=== PATIENT | female | born 1995 | race American Indian/Alaskan Native ===

== ENCOUNTER 2017-07-12 13:39 | Emergency (ER) | payer SELFPAY ==
[2017-07-12 13:48] VITALS: BP 132/79
[2017-07-12] MEDS ORDERED: TYLENOL #3 PO ONE (14:03)
[2017-07-12] MEDS ORDERED: BOOSTRIX IM ONE (14:06)
--- NOTE | 2017-07-12 14:12 | Emergency Department Report ---
ED ENT HPI - General Chief complaint: Earache Stated complaint: RIGHT EAR PAIN Time Seen by Provider: 07/12/17 13:52 Source: patient Mode of arrival: Ambulatory Limitations: No Limitations - History of Present Illness Initial comments: 22-year-old female past medical history. Tympanic membrane presents with complaint of pain in right ear for 2 days. Patient states that she was washing her hair and got water in her right ear and has been having pain in right ear for the last 2 days. Patient has had intermittent pain and difficulty hearing out of right ear for over one year. Denies any fevers or chills or purulent drainage from right ear. States that she sustained an injury over a year ago and was informed she had it tympanic membrane rupture but never followed up with ENT. MD complaint: ear pain Onset/Timin Location: R ear Severity: moderate Severity scale (0 -10): 5 Quality: aching Consistency: intermittent Improves with: none Worsens with: none - Related Data Previous Rx's Medication Instructions Recorded Last Taken Type Acetaminophen/Codeine [Tylenol 1 tab PO Q6H PRN #10 tab 07/12/17 Unknown Rx /Codeine # 3 tab] Amoxicillin/Potassium Clav 1 each PO BID #20 tablet 07/12/17 Unknown Rx [Augmentin 875-125 Tablet] Ibuprofen [Motrin] 800 mg PO Q8HR PRN #25 tablet 07/12/17 Unknown Rx Allergies Allergy/AdvReac Type Severity Reaction Status Date / Time No Known Allergies Allergy Unverified 07/12/17 13:44 ED Dental HPI - General Chief complaint: Earache Stated complaint: RIGHT EAR PAIN Time Seen by Provider: 07/12/17 13:52 Source: patient Mode of arrival: Ambulatory Limitations: No Limitations - Related Data Previous Rx's Medication Instructions Recorded Last Taken Type Acetaminophen/Codeine [Tylenol 1 tab PO Q6H PRN #10 tab 07/12/17 Unknown Rx /Codeine # 3 tab] Amoxicillin/Potassium Clav 1 each PO BID #20 tablet 07/12/17 Unknown Rx [Augmentin 875-125 Tablet] Ibuprofen [Motrin] 800 mg PO Q8HR PRN #25 tablet 07/12/17 Unknown Rx Allergies Allergy/AdvReac Type Severity Reaction Status Date / Time No Known Allergies Allergy Unverified 07/12/17 13:44 ED Review of Systems ROS: Stated complaint: RIGHT EAR PAIN Other details as noted in HPI Constitutional: denies: chills, fever Eyes: denies: eye pain, eye discharge, vision change ENT: ear pain. denies: throat pain Respiratory: denies: cough, shortness of breath, wheezing Cardiovascular: denies: chest pain, palpitations Endocrine: no symptoms reported Gastrointestinal: denies: abdominal pain, nausea, diarrhea Genitourinary: denies: urgency, dysuria, discharge Musculoskeletal: denies: back pain, joint swelling, arthralgia Skin: denies: rash, lesions Neurological: denies: headache, weakness, paresthesias Psychiatric: denies: anxiety, depression Hematological/Lymphatic: denies: easy bleeding, easy bruising ED Past Medical Hx - Past Medical History Previous Medical History?: No - Surgical History Past Surgical History?: Yes Additional Surgical History: D&C - Social History Smoking Status: Current Some Day Smoker Substance Use Type: Alcohol, Marijuana - Medications Home Medications: Home Medications Medication Instructions Recorded Confirmed Last Taken Type Acetaminophen/Codeine [Tylenol 1 tab PO Q6H PRN #10 tab 07/12/17 Unknown Rx /Codeine # 3 tab] Amoxicillin/Potassium Clav 1 each PO BID #20 tablet 07/12/17 Unknown Rx [Augmentin 875-125 Tablet] Ibuprofen [Motrin] 800 mg PO Q8HR PRN #25 tablet 07/12/17 Unknown Rx ED Physical Exam - General Limitations: No Limitations General appearance: alert, in no apparent distress - Head Head exam: Present: atraumatic, normocephalic - Eye Eye exam: Present: normal appearance, PERRL, EOMI - ENT ENT exam: Present: mucous membranes moist - Expanded ENT Exam Expanded TM/Canal exam: Erythema: Right TM (surrounding erythema along edges of tympanic membrane. No clinical signs of mastoiditis external), Perforation: Right TM ( perforation and middle of the eardrum right ear) - Neck Neck exam: Present: normal inspection - Respiratory Respiratory exam: Present: normal lung sounds bilaterally. Absent: respiratory distress - Cardiovascular Cardiovascular Exam: Present: regular rate, normal rhythm. Absent: systolic murmur, diastolic murmur, rubs, gallop - GI/Abdominal GI/Abdominal exam: Present: soft, normal bowel sounds - Extremities Exam Extremities exam: Present: normal inspection - Back Exam Back exam: Present: normal inspection - Neurological Exam Neurological exam: Present: alert, oriented X3 - Psychiatric Psychiatric exam: Present: normal affect, normal mood - Skin Skin exam: Present: warm, dry, intact, normal color. Absent: rash ED Course Vital Signs 07/12/17 13:44 Temperature 99 F Pulse Rate 77 Respiratory 18 Rate Blood Pressure 132/79 O2 Sat by Pulse 100 Oximetry ED Medical Decision Making - Medical Decision Making A/P: Acute otitis media, history of ruptured tympanic membrane right ear 1-patient's overall hearing is intact 2-patient's tetanus vaccine updated today as she states she does not know what her tetanus vaccine status is 3-Motrin when necessary, Tylenol No. 3 when necessary, ten-day course of Augmentin 4-I emphasized the importance of follow-up with ENT to the patient to mitigate any long-term hearing loss. Patient stated she understood and would follow up with ENT. Advised her to return to the ED if she develops fevers chills or purulent drainage from right ear. Critical care attestation.: If time is entered above; I have spent that time in minutes in the direct care of this critically ill patient, excluding procedure time. ED Disposition Clinical Impression: Right otitis media Qualifiers: Otitis media type: suppurative Chronicity: acute Recurrence: not specified as recurrent Spontaneous tympanic membrane rupture: without spontaneous rupture Qualified Code(s): H66.001 - Acute suppurative otitis media without spontaneous rupture of ear drum, right ear Disposition: - TO HOME OR SELFCARE Is pt being admited?: No Does the pt Need Aspirin: No Condition: Stable Instructions: Otitis Media (ED), Ruptured Eardrum (ED) Prescriptions: Acetaminophen/Codeine [Tylenol /Codeine # 3 tab] 1 tab PO Q6H PRN #10 tab PRN Reason: Ear Pain Amoxicillin/Potassium Clav [Augmentin 875-125 Tablet] 1 each PO BID #20 tablet Ibuprofen [Motrin] 800 mg PO Q8HR PRN #25 tablet PRN Reason: Pain Referrals: [facility] [place] [facility] [Provider Group] - 3-5 Days [facility]NT [facility] [Provider Group] - 3-5 Days ANDERSON CALVO MD [Staff Physician] - 3-5 Days Time of Disposition: 14:43
== END 2017-07-12 14:45 | disposition home or self-care (01) ==
LOC: ED 13:39
DX: H66.001 Acute suppurative otitis media without spontaneous rupture of ear drum, right ear (principal); F17.200 Nicotine dependence, unspecified, uncomplicated; F12.10 Cannabis abuse, uncomplicated
CPT/HCPCS: 90471; 90715; 99282

== ENCOUNTER 2019-03-20 11:43 | Emergency (ER) | payer OTHER ==
--- NOTE | 2019-03-20 11:56 | Event Note ---
ED Screening Note Date of service: 03/20/19 Time: 11:51 ED Screening Note: Pt complains of cough, congestion, and SOB x 3 weeks 4 months pregannt This initial assessment/diagnostic orders/clinical plan/treatment(s) is/are subject to change based on patients health status, clinical progression and re- assessment by fellow clinical providers in the ED. Further treatment and workup at subsequent clinical providers discretion. Patient/guardian urged not to elope from the ED as their condition may be serious if not clinically assessed and managed. Initial orders include: CXR
[2019-03-20 12:33] LABS: Basophils # (Auto) 0.1 K/mm3 (0.0-0.1); Basophils % (Auto) 0.6 % (0.0-1.8); Eosinophils # (Auto) 0.2 K/mm3 (0.0-0.4); Eosinophils % (Auto) 2.1 % (0.0-4.3); Hematocrit 35.4 % (30.3-42.9); Hemoglobin 12.4 gm/dl (10.1-14.3); Lymphocytes # (Auto) 1.4 K/mm3 (1.2-5.4); Lymphocytes % (Auto) 14.2 % (13.4-35.0); Mean Corpuscular HGB Conc 35 % (30-34); Mean Corpuscular Volume 86 fl (79-97); Monocytes # (Auto) 0.6 K/mm3 (0.0-0.8); Monocytes % (Auto) 6.4 % (0.0-7.3); Platelet Count 368 K/mm3 (140-440); Red Blood Count 4.11 M/mm3 (3.65-5.03); Red Cell Distribution Width 13.2 % (13.2-15.2)
[2019-03-20 12:46] VITALS: BP 123/64
[2019-03-20 12:46] LABS: Alanine Aminotransferase 35 units/L (7-56); Albumin 3.4 g/dL (3.9-5); BUN/Creatinine Ratio 6; Blood Urea Nitrogen 4 mg/dL (7-17); Calcium 9.2 mg/dL (8.4-10.2); Hemolysis Index 4
[2019-03-20 13:21] LABS: Bilirubin,Urine NEG (Negative); Blood,Urine NEG (Negative); Color,Urine Yellow (Yellow); Mucus,Urine FEW /HPF; Protein,Urine <15 mg/dL mg/dL (Negative); Urobilinogen,Urine < 2.0 mg/dL (<2.0)
--- NOTE | 2019-03-20 13:22 | XRay Report ---
CHEST 1 VIEW INDICATION / CLINICAL INFORMATION: cough, shortness of breath. COMPARISON: None available. FINDINGS: SUPPORT DEVICES: None. HEART / MEDIASTINUM: No significant abnormality. LUNGS / PLEURA: No significant pulmonary or pleural abnormality. No pneumothorax. ADDITIONAL FINDINGS: No significant additional findings. IMPRESSION: 1. No significant change Signer Name: Wally Shore MD Signed: 03/20/2019 1:18 PM Workstation Name: [id number]
--- NOTE | 2019-03-20 13:35 | Emergency Department Report ---
- General Chief Complaint: Upper Respiratory Infection Stated Complaint: SICK/4 MTHS PREG Time Seen by Provider: 03/20/19 11:50 Source: patient Mode of arrival: Ambulatory Limitations: No Limitations - History of Present Illness Initial Comments: CC: "I have a lingering cold." HPI: Ernesto Is a very pleasant 23 year old female who is currently 16 weeks who presents with cold-like symptoms and cough for the past 3 weeks. She has nasal congestion nonproductive cough. She is concerned that the cold has lingered. She denies fever. She denies body aches. She denies abdominal pain. She denies nausea vomiting. Her due date is 08/26/2019. She has been re ceiving regular care. MD Complaint: cough, rhinorrhea, nasal congestion -: Gradual, week(s) (3) Severity: mild Consistency: constant Improves With: nothing Worsens With: nothing Context: other (unknown sick contacts) Associated Symptoms: denies other symptoms - Related Data Previous Rx's Medication Instructions Recorded Last Taken Type Amoxicillin/Potassium Clav 1 each PO BID #20 tablet 07/12/17 Unknown Rx [Augmentin 875-125 Tablet] Ibuprofen [Motrin] 800 mg PO Q8HR PRN #25 tablet 07/12/17 Unknown Rx RX: Acetaminophen/Codeine [Tylenol 1 tab PO Q6H PRN #10 tab 07/12/17 Unknown Rx /Codeine # 3 tab] Allergies Allergy/AdvReac Type Severity Reaction Status Date / Time No Known Allergies Allergy Unverified 07/12/17 13:44 ED Review of Systems ROS: Stated complaint: SICK/4 MTHS PREG Other details as noted in HPI Comment: All other systems reviewed and negative Constitutional: denies: chills, fever Eyes: denies: eye pain, eye discharge, vision change ENT: congestion. denies: ear pain, throat pain Respiratory: denies: cough, shortness of breath, wheezing Cardiovascular: denies: chest pain, palpitations Gastrointestinal: denies: abdominal pain, nausea, diarrhea Skin: denies: rash, lesions Neurological: denies: headache, weakness, paresthesias ED Past Medical Hx - Past Medical History Previous Medical History?: No - Surgical History Past Surgical History?: Yes Additional Surgical History: D&C - Social History Smoking Status: Never Smoker - Medications Home Medications: Home Medications Medication Instructions Recorded Confirmed Last Taken Type Amoxicillin/Potassium Clav 1 each PO BID #20 tablet 07/12/17 Unknown Rx [Augmentin 875-125 Tablet] Ibuprofen [Motrin] 800 mg PO Q8HR PRN #25 tablet 07/12/17 Unknown Rx RX: Acetaminophen/Codeine [Tylenol 1 tab PO Q6H PRN #10 tab 07/12/17 Unknown Rx /Codeine # 3 tab] ED Physical Exam - General Limitations: No Limitations General appearance: alert, in no apparent distress, other (well-appearing smiling pleasant heart rate 97 bpm on youth nutritional monitor) - Head Head exam: Present: atraumatic, normocephalic - Eye Eye exam: Present: normal appearance - ENT ENT exam: Present: mucous membranes moist - Neck Neck exam: Present: normal inspection, full ROM - Respiratory Respiratory exam: Present: normal lung sounds bilaterally. Absent: respiratory distress, wheezes, rales, rhonchi - Cardiovascular Cardiovascular Exam: Present: regular rate, normal rhythm, normal heart sounds. Absent: systolic murmur, diastolic murmur, rubs, gallop - GI/Abdominal GI/Abdominal exam: Present: soft, normal bowel sounds. Absent: distended, tenderness, guarding, rebound - Extremities Exam Extremities exam: Present: normal inspection - Neurological Exam Neurological exam: Present: alert, oriented X3 - Psychiatric Psychiatric exam: Present: normal affect, normal mood - Skin Skin exam: Present: warm, dry, intact, normal color. Absent: rash ED Course Vital Signs 03/20/19 03/20/19 11:46 12:45 Temperature 98.6 F Pulse Rate 120 H 104 H Respiratory 18 16 Rate Blood Pressure 137/80 Blood Pressure 123/64 [Left] O2 Sat by Pulse 97 99 Oximetry ED Medical Decision Making - Lab Data Result diagrams: 03/20/19 12:03 03/20/19 12:03 Laboratory Results - last 24 hr 03/20/19 03/20/19 03/20/19 12:03 12:03 12:45 WBC 10.1 RBC 4.11 Hgb 12.4 Hct 35.4 MCV 86 MCH 30 MCHC 35 H RDW 13.2 Plt Count 368 Lymph % (Auto) 14.2 [place] % (Auto) 6.4 Eos % (Auto) 2.1 Baso % (Auto) 0.6 Lymph # 1.4 [place] # 0.6 Eos # 0.2 Baso # 0.1 Seg Neutrophils % 76.7 H Seg Neutrophils # 7.8 H Sodium 137 Potassium 3.7 Chloride 103.5 Carbon Dioxide 21 L Anion Gap 16 BUN 4 L Creatinine 0.7 Estimated GFR > 60 BUN/Creatinine Ratio 6 Glucose 94 Calcium 9.2 Total Bilirubin 0.20 AST 26 ALT 35 Alkaline Phosphatase 61 Total Protein 7.1 Albumin 3.4 L Albumin/Globulin Ratio 0.9 Urine Color Yellow Urine Turbidity Slightly-cloudy Urine pH 6.0 Ur Specific [place] 1.016 Urine Protein <15 mg/dl Urine Glucose (UA) Neg Urine Ketones Neg Urine Blood Neg Urine Nitrite Neg Urine Bilirubin Neg Urine Urobilinogen < 2.0 Ur Leukocyte Esterase Neg Urine WBC (Auto) 2.0 Urine RBC (Auto) 6.0 U Epithel Cells (Auto) 14.0 H Urine Mucus Few - Radiology Data Radiology results: report reviewed Chest radiographs PA and lateral no acute process - Medical Decision Making Reality presents with upper respiratory infection. She is currently 16 weeks . Denies fever or flulike symptoms otherwise. She appears well. She was given extensive instructions regarding safe [id number] treatments which includes diphenhydramine and Tylenol. CBC chemistry urinalysis all within normal limits. Chest radiograph without acute findings. She'll follow-up with her personal book mender this week. Discharged home in stable condition. Repeat heart rate 97 bpm on my examination. Critical care attestation.: If time is entered above; I have spent that time in minutes in the direct care of this critically ill patient, excluding procedure time. ED Disposition Clinical Impression: Upper respiratory infection, Second trimester Disposition: DC-01 TO HOME OR SELFCARE Is pt being admited?: No Does the pt Need Aspirin: No Condition: Stable Instructions: Upper Respiratory Infection (ED) Additional Instructions: Benadryl and Tylenol are safe in . Please use Benadryl at night for nasal congestion. Referrals: PRIMARY CARE, [Primary Care Provider] - 3-5 Days
== END 2019-03-20 13:39 | disposition home or self-care (01) ==
LOC: ED 11:43
DX: O99.512 Diseases of the respiratory system complicating pregnancy, second trimester (principal); Z79.899 Other long term (current) drug therapy; Z3A.16 16 weeks gestation of pregnancy
CPT/HCPCS: 36415; 71045; 80053; 81001; 85025

== ENCOUNTER 2019-08-28 16:51 | Outpatient (CLI) | payer OTHER ==
[2019-08-28 17:22] VITALS: BP 122/75
== END 2019-08-28 19:16 | disposition home or self-care (01) ==
LOC: TRG 16:51 → APU 16:58 → TRG 19:16
PROVIDERS: ATTEND Obstetrics & Gynecology
DX: O47.03 False labor before 37 completed weeks of gestation, third trimester (principal); Z3A.36 36 weeks gestation of pregnancy
CPT/HCPCS: 59025

== ENCOUNTER 2019-08-29 05:50 | Inpatient (IN) | payer OTHER ==
[2019-08-29] MEDS ORDERED: TERBUTALINE 1 MG/1 ML INJ SUB-Q PRN (08:18)
[2019-08-29] MEDS ORDERED: LIDOCAINE (2%) 20 MG/1 ML VIAL 20 ML MDV INFILTRATI ONE ×2 (08:18→17:39)
[2019-08-29] MEDS ORDERED: TERBUTALINE 1 MG/1 ML INJ IVP PRN (08:18)
[2019-08-29] MEDS ORDERED: ePHEDrine SULFATE 50 MG/1 ML INJ IV PRN (08:18)
--- NOTE | 2019-08-29 08:24 | History and Physical Report ---
History of Present Illness Date of examination: 08/29/19 Date of admission: 08/29/19 Chief complaint: Contractions, leaking fluid History of present illness: Pt is a 24 yo at 40w0d who presents reporting regular uterine contractions and leaking fluid. She reports positive movement and one episode of spotting yesterday. Exam in triage is negative for SROM. She has received care with [place] [facility] supervisor marble since 10 weeks EGA. Her course has been complicated by Sickle Cell Trait carrier status. She is GBS negative. Past History Past Medical History: asthma Past Surgical History: D&C (due to heavy bleeding) Family/Genetic History: none Social history: no significant social history - Obstetrical History Expected Date of Delivery: 08/29/19 Actual Gestation: 40 Week(s) 0 Day(s) : 1 Para: 0 Medications and Allergies Allergies Allergy/AdvReac Type Severity Reaction Status Date / Time No Known Allergies Allergy Unverified 07/12/17 13:44 Home Medications Medication Instructions Recorded Confirmed Last Taken Type Acetaminophen/Codeine [Tylenol 1 tab PO Q6H PRN #10 tab 07/12/17 Unknown Rx /Codeine # 3 tab] Amoxicillin/Potassium Clav 1 each PO BID #20 tablet 07/12/17 Unknown Rx [Augmentin 875-125 Tablet] Ibuprofen [Motrin] 800 mg PO Q8HR PRN #25 tablet 07/12/17 Unknown Rx Active Meds: Active Medications Ephedrine Sulfate (Ephedrine Sulfate) 10 mg IV Q2M PRN PRN Reason: Hypotension Oxytocin/Sodium Chloride (Pitocin/Ns 20 Unit/1000ml Drip) 20 units in 1,000 mls @ 125 mls/hr IV DIRECT DANNY Oxytocin/Sodium Chloride (Pitocin/Ns 30 Unit/500ml) 30 units in 500 mls @ 1 mls/hr IV TITR DANNY; Protocol Lactated Ringer's (Lactated Ringers) 1,000 mls @ 125 mls/hr IV DIRECT DANNY Lidocaine (Xylocaine 2%) 20 ml INFILTRATI ONCE ONE Stop: 08/29/19 08:19 Mineral Oil (Mineral Oil) 30 ml PO QHS PRN PRN Reason: Constipation Terbutaline Sulfate (Brethine) 0.25 mg SUB-Q ONCE PRN PRN Reason: Hyperstimulation/Hypertonicity Terbutaline Sulfate (Brethine) 0.25 mg IVP ONCE PRN PRN Reason: Hyperstimulation/Hypertonicity Review of Systems All systems: negative Genitourinary: vaginal discharge (with some bloody show), leakage of fluid (thick, mucusy), contractions - Vital Signs Vital signs: Vital Signs Pulse Pulse Ox 108 H 98 08/29/19 06:22 08/29/19 06:22 Temp Pulse Resp BP Pulse Ox 97.8 F 102 H 18 143/88 97 08/29/19 06:25 08/29/19 07:07 08/29/19 06:25 08/29/19 06:25 08/29/19 07:07 - Physical Exam Lungs: Positive: Normal air movement Abdomen: Positive: soft. Negative: distention Vagina: Positive: other (no fluid, Nitrazine negative) Uterus: Positive: enlarged (gravid) - Obstetrical FHR: category 1 Uterine Contraction Monitor Mode: External Cervical Dilatation: 4 (per RN) Cervical Effacement Percentage: 70 station: -2 Uterine Contraction Pattern: Regular Uterine Tone Measurement Phase: Contraction Uterine Contraction Intensity: Strong/Firm Results Result Diagrams: 08/29/19 08:00 All other labs normal. Assessment and Plan A: 24 yo at 40w0d Active labor Membranes intact GBS negative Asthma P: Admit to L&D Pain relief as requested Anticipate
[2019-08-29 08:35] LABS: Hematocrit 29.7 % (30.3-42.9); Mean Corpuscular HGB Conc 34 % (30-34); Mean Corpuscular Volume 84 fl (79-97); Platelet Count 314 K/mm3 (140-440); Red Blood Count 3.52 M/mm3 (3.65-5.03); Red Cell Distribution Width 14.4 % (13.2-15.2)
[2019-08-29] MEDS ORDERED: OXYTOCIN DRIP 30 UNITS/500 ML BAG IV SCH (09:00)
[2019-08-29] MEDS ORDERED: OXYTOCIN 20 UNIT/1000ML DRIP 20 UNITS/1,000 ML BAG IV SCH (09:00)
[2019-08-29] MEDS ORDERED: fentaNYL 100 MCG/2 ML INJ ONE ×2 (09:24→16:26)
[2019-08-29] MEDS ORDERED: fentaNYL 100 MCG/2 ML INJ IV ONE ×2 (09:26→17:35)
[2019-08-29] MEDS: LACTATED RINGERS 1,000 ML IV SCH ×3 (11:17→14:19)
[2019-08-29] MEDS ORDERED: DEXMEDETOMIDINE 200 MCG/2 ML VIAL IV ONE (12:17)
[2019-08-29] MEDS ORDERED: NalbUPHINE 10 MG/1 ML INJ IV PRN (12:45)
[2019-08-29] MEDS ORDERED: ONDANSETRON 4 MG/2 ML INJ IV PRN ×2 (12:45→18:12)
[2019-08-29] MEDS ORDERED: diphenhydrAMINE 50 MG/ML VIAL IV PRN (12:45)
[2019-08-29] MEDS ORDERED: NALOXONE 2 MG/2 ML INJ IV PRN (12:45)
--- NOTE | 2019-08-29 12:47 | Anesthesia Consultation ---
Anesthesia Consult and Med Hx Date of service: 08/29/19 - Airway Anesthetic Teeth Evaluation: Good ROM Head & Neck: Adequate Mental/Hyoid Distance: Adequate Mallampati Class: Class III Intubation Access Assessment: Possibly Difficult - Pulmonary Exam CTA: Yes - Cardiac Exam Cardiac Exam: RRR - Pre-Operative Health Status ASA Pre-Surgery Classification: ASA2 Proposed Anesthetic Plan: Epidural - Pulmonary Hx Smoking: No Hx Asthma: Yes (NEVER HAD AN ATTACK) Hx Sleep Apnea: No - Cardiovascular System Hx Hypertension: No - Central Nervous System Hx Seizures: No Hx Psychiatric Problems: No - Endocrine Hx Renal Disease: No Hx Hypothyroidism: No Hx Hyperthyroidism: No - Hematic Hx Anemia: No Hx Sickle Cell Disease: No - Other Systems Hx Alcohol Use: No
--- NOTE | 2019-08-29 12:48 | Progress Note ---
Labor Epidural - Labor Epidural Start Time: 12:28 Stop Time: 12:36 Performed by:: COLTON LEONE Procedure: Patient is requesting a laboring epidural for laboring pain. Patient IDed, H&P reviewed, all questions and concerns were answered, and consent was signed. Timeout was performed at bedside. Patient in sitting position. Sterile prep and drape was performed. [3] ml of 1% lidocaine skin wheal at L[3]- L [4]. 18- gauge Touhy epidural needle was advanced to loss of resistance with air technique. Negative CSF negative blood. Epidural catheter advanced to [12] centimeters. [-] Aspiration [-] test dose. Sterile dressing applied. Patient tolerated procedure.
[2019-08-29] MEDS ORDERED: fentaNYL-BUPIV 2 MCG/ML-0.125% 200 MCG/100 ML BAG EPIDURAL SCH (13:00)
--- NOTE | 2019-08-29 16:21 | Event Note ---
Date: 08/29/19 Pt uncomfortable with epidural in place, grimacing and moaning through contractions. Feels intermittent rectal pressure. Discussed r/b of AROM, pt elects. SVE 8.5/90/-2 AROM scant clear fluid, FHT category 1 throughout. Positioned in exaggerated right lateral. Will consult anesthesia.
[2019-08-29] MEDS ORDERED: BUPIVACAINE/PF (0.25%) 2.5 MG/ML 10 ML VIAL INFILTRATI ONE (16:26)
--- NOTE | 2019-08-29 18:11 | Procedure Note ---
OB Delivery Note - Delivery Date of Delivery: 08/29/19 Surgeon: BATSHEVA RED (MEGAM) Estimated blood loss: 300cc - Vaginal Delivery presentation: vertex Delivery position: OA Intrapartum events: PROM->1hr before delivery Delivery induction: none Delivery augmentation: rupture of membranes, pitocin Delivery monitor: external FHT, external uterine Route of delivery: Delivery placenta: spontaneous Delivery cord: nuchal cord Episiotomy: none Delivery laceration: other (right sulcus) Delivery repair: vicryl Anesthesia: local, intravenous, epidural Delivery comments: Pt commenced pushing spontaneously and delivered vigorous infant while CNM was en route. Pitocin infusing. Cord clamped and cut. Placenta delivered spontaneously and intact, meconium-stained. Sulcus laceration not hemostatic to applied pressure. IV Fentanyl administered, 2% Lidocaine infiltrated submucosally, repaired with 2-0 Vicryl in running fashion to good hemostasis. Mother and bonding well, plan to breast feed. Apgars 8/9, weight 7lb 10oz. - A at 1 minute: 8 at 5 minutes: 9 Infant Gender: Male
[2019-08-29] MEDS ORDERED: LANOLIN/ZINC/DIMETHICONE (LANSINOH) 7 GM TP PRN (18:12)
[2019-08-29] MEDS ORDERED: diphenhydrAMINE 25 MG CAP PO PRN (18:12)
[2019-08-29] MEDS ORDERED: PROMETHAZINE 25 MG RECT SUPP PR PRN (18:12)
[2019-08-29] MEDS ORDERED: PROMETHAZINE 25 MG TAB PO PRN (18:12)
[2019-08-29] MEDS ORDERED: ACETAMINOPHEN 325 MG TAB PO PRN (18:12)
[2019-08-29] MEDS ORDERED: MAGNESIUM HYDROXIDE (MOM) ORAL LIQD UDC PO PRN (18:12)
[2019-08-29] MEDS ORDERED: WITCH HAZEL/ GLYCERIN PAD TP PRN (18:12)
[2019-08-29] MEDS ORDERED: MINERAL OIL 30 ML ORAL LIQD PO PRN (22:00)
[2019-08-29] MEDS: IBUPROFEN 600 MG TAB PO SCH (23:41)
[2019-08-30] MEDS: IBUPROFEN 600 MG TAB PO SCH ×3 (05:33→17:58)
[2019-08-30 05:57] LABS: Hematocrit 26.7 % (30.3-42.9); Hemoglobin 8.9 gm/dl (10.1-14.3)
--- NOTE | 2019-08-30 09:14 | Progress Note ---
Assessment and Plan A: PPD#1 s/p at term, Asymptomatic anemia P: Routine care. Discharge later today if baby is discharged. Subjective - Subjective Date of service: 08/30/19 Principal diagnosis: s/po at term Interval history: Pt without complaints. Requesting discharge later today if possible Patient reports: appetite normal, voiding normally, pain well controlled, ambulating normally : doing well Objective - Vital Signs Latest vital signs: Vital Signs Temp Pulse Resp BP BP Pulse Ox 08/30/19 08:51 98.4 F 88 20 114/66 100 08/30/19 04:50 98.2 F 93 H 20 107/62 98 08/30/19 01:00 98.2 F 97 H 20 106/52 98 08/29/19 19:53 98.4 F 86 18 119/71 98 08/29/19 19:30 98.3 F 18 99 08/29/19 19:13 80 121/74 08/29/19 17:48 98.2 F 08/29/19 17:43 91 H 120/68 08/29/19 17:42 81 122/65 08/29/19 17:13 88 127/81 08/29/19 16:43 85 116/65 08/29/19 16:18 84 98 08/29/19 16:11 99 H 99 08/29/19 16:06 81 99 08/29/19 16:01 90 99 08/29/19 16:00 99.0 F 22 08/29/19 15:56 100 H 99 08/29/19 15:42 81 141/75 08/29/19 15:13 75 157/91 08/29/19 14:42 84 127/60 08/29/19 14:10 99.2 F 16 08/29/19 13:57 85 127/71 08/29/19 13:42 88 121/69 08/29/19 13:30 98.2 F 18 08/29/19 13:27 87 121/67 08/29/19 13:13 89 136/78 08/29/19 12:57 100 H 128/61 08/29/19 12:54 105 H 138/65 08/29/19 12:53 87 127/62 08/29/19 12:51 88 132/61 08/29/19 12:49 93 H 120/56 08/29/19 12:46 93 H 129/60 08/29/19 12:45 93 H 132/60 08/29/19 12:43 92 H 147/80 08/29/19 12:41 90 126/61 08/29/19 12:38 90 125/60 08/29/19 12:36 88 134/63 08/29/19 12:34 87 128/59 08/29/19 12:33 86 127/57 08/29/19 12:16 82 117/62 08/29/19 11:46 83 120/59 08/29/19 11:16 80 119/65 08/29/19 11:00 98.9 F 18 08/29/19 10:46 79 147/90 08/29/19 10:16 84 161/94 08/29/19 09:47 85 112/66 Intake and Output 08/29/19 08/30/19 08/30/19 22:59 06:59 14:59 Output Total 1300 Balance -1300 Output: Urine 1300 Indwelling Catheter 1300 Other: Total, Output Amount 300 # Voids Indwelling Catheter 1 1 # Bowel Movements 1 Estimated Blood Loss 300 - Exam Breasts: Present: deferred Abdomen: Present: soft Uterus: Present: fundal height at umbilicus Extremities: Present: normal - Labs Labs: Abnormal lab results 08/30/19 Range/Units 05:35 Hgb 8.9 L (10.1-14.3) gm/dl Hct 26.7 L (30.3-42.9) %
--- NOTE | 2019-08-30 11:25 | Post Anesthesia Evaluation ---
- Post Anesthesia Evaluation Patient Participated: Yes Airway Patent: Yes Stable Respiratory Function: Yes Nausea/Vomiting: No Temp > 96.8F: Yes Pain Manageable: Yes Adequeate Hydration: Yes Anesthesia Complications: No Block Receding Appropriately: Yes Patient on Ventilator: No
--- NOTE | 2019-08-30 13:04 | Discharge Summary ---
Providers - Providers Date of Admission: 08/29/19 09:29 Date of discharge: 08/30/19 Attending physician: SARAVANAN STEVENS 08/29/19 18:13 Consult to Life Science Technician [CONS] Routine Reason For Exam: assistance with , SNS Primary care physician: SARAVANAN STEVENS Hospitalization Reason for admission: active labor Delivery: Procedure details: Please see delivery note. Episiotomy: none Laceration: other (Righlt sulcus tear ) Other procedures: none complications: none Discharge diagnosis: IUP at term delivered [place] baby: male Hospital course: Pt was admitted in active labor and went on to have a vaginal delivery which she tolerated well. Her course was uncomplicated and she met discharge criteria on PPD#1. She will follow up in the office in 4 wks for a appt. Condition at discharge: Stable Disposition: DC-01 TO HOME OR SELFCARE - Discharge Diagnoses (1) Term of male Status: Acute (2) Acute on chronic blood loss anemia Status: Acute (3) Obesity Status: Acute Qualifiers: Obesity type: unspecified obesity type Obesity classification: adult class 2 (BMI 35 - 39.9) Body mass index: BMI 36.0-36.9 Plan - Discharge Medications Prescriptions: Ferrous Sulfate [Feosol 325 MG tab] 325 mg PO BID #60 tablet Ibuprofen [Motrin] 600 mg PO Q6H PRN #60 tablet PRN Reason: Pain - Provider Discharge Summary Activity: routine, no sex for 6 weeks, no heavy lifting 4 weeks, no strenuous exercise Diet: routine Instructions: routine Additional instructions: [] Smoking cessation referral if applicable(refer to patient education folder for contact #) [] Refer to [facility] Booklet Call your doctor immediately for: * Fever > 100.5 * Heavy vaginal bleeding ( >1 pad per hour) * Severe persistent headache * Shortness of breath * Reddened, hot, painful area to leg or breast * Drainage or odor from incision. * Keep incision clean and dry at all times and follow doctor's instructions regarding bathing/showering - Follow up plan Follow up: IVELKA ROSA NP [Referring] - 09/27/19 (Please call to schedule appt Please schedule your son's circumcision before he is one month old. )
[2019-08-31] MEDS: IBUPROFEN 600 MG TAB PO SCH ×3 (00:21→17:02)
[2019-08-31 19:12] VITALS: BP 134/83
== END 2019-08-31 19:00 | disposition home or self-care (01) | DRG 775 ==
LOC: TRG 05:50 → APU 05:53 → TRG 09:28 → LD 09:29 → OB 20:39
PROVIDERS: ADMIT Obstetrics & Gynecology; ATTEND Obstetrics & Gynecology
PROC: 10E0XZZ Delivery of Products of Conception, External Approach (ICD-10-PCS; principal; 2019-08-29)
PROC: 3E0R3BZ Introduction of Anesthetic Agent into Spinal Canal, Percutaneous Approach (ICD-10-PCS; 2019-08-29)
PROC: 00HU33Z Insertion of Infusion Device into Spinal Canal, Percutaneous Approach (ICD-10-PCS; 2019-08-29)
PROC: 0UQGXZZ Repair Vagina, External Approach (ICD-10-PCS; 2019-08-29)
DX: O69.81X0 Labor and delivery complicated by cord around neck, without compression, not applicable or unspecified (principal); O42.02 Full-term premature rupture of membranes, onset of labor within 24 hours of rupture; J45.909 Unspecified asthma, uncomplicated; D62 Acute posthemorrhagic anemia; O99.52 Diseases of the respiratory system complicating childbirth; O90.81 Anemia of the puerperium; Z3A.40 40 weeks gestation of pregnancy; Z37.0 Single live birth; O71.4 Obstetric high vaginal laceration alone
CPT/HCPCS: 36415; 59025; 85014; 85018; 85027; 86850; 86900; 86901; 88307; G0378; J2590; J3010; J3490; J7120

== ENCOUNTER 2021-08-07 15:52 | Emergency (ER) | payer OTHER ==
[2021-08-07 18:44] VITALS: BP 171/84
[2021-08-08] MEDS ORDERED: diphenhydrAMINE 25 MG CAP PO ONE (03:36)
[2021-08-08] MEDS ORDERED: predniSONE 20 MG TAB PO ONE (03:36)
[2021-08-08] MEDS ORDERED: ACETAMINOPHEN 500 MG TAB PO ONE (03:36)
[2021-08-08] MEDS ORDERED: METOCLOPRAMIDE 10 MG TAB PO ONE (03:36)
--- NOTE | 2021-08-08 03:44 | Emergency Department Report ---
ED Headache HPI - General Chief Complaint: Headache Stated Complaint: HEADACHE Time Seen by Provider: 08/08/21 03:37 - History of Present Illness Initial Comments: Patient 26-year-old female with history of headaches for the past 10 years intermittently. Patient states frontal headache 5/10 radiating to left and right for the past 3 days. Patient denies photophobia however there is no decrease of vision. There is no fevers no chills no ear or throat pain. Patient remains alert oriented x3 there is no nausea or vomiting. Patient drove self to ED tonight there is been no fever or chills. Patient states symptoms are exacerbated by activity. Symptoms are relieved by rest. Patient states she is between primary care providers and does not have medications for headache. Patient is with no acute distress at this time. Allergies/Adverse Reactions: Allergies No Known Allergies Allergy (Unverified 07/12/17 13:44) Home Medications: Ambulatory Orders Ferrous Sulfate [Feosol 325 MG tab] 325 mg PO BID #60 tablet 08/29/19 Ibuprofen [Motrin] 600 mg PO Q6H PRN #60 tablet 08/29/19 Acetaminophen [Acetaminophen TAB] 1,000 mg PO Q6HR PRN #30 tablet 08/08/21 Metoclopramide [Reglan] 10 mg PO Q6H PRN #30 tablet 08/08/21 diphenhydrAMINE [Benadryl CAP] 25 mg PO Q6HR PRN #30 capsule 08/08/21 ED Review of Systems ROS: Stated complaint: HEADACHE Other details as noted in HPI Constitutional: malaise. denies: chills, fever Eyes: denies: eye pain, eye discharge, vision change ENT: denies: ear pain, throat pain, epistaxis, congestion Respiratory: denies: cough, shortness of breath, wheezing Cardiovascular: denies: chest pain, palpitations Endocrine: no symptoms reported Gastrointestinal: denies: abdominal pain, nausea, vomiting, diarrhea Genitourinary: denies: urgency, dysuria, discharge Musculoskeletal: denies: back pain, joint swelling, arthralgia Skin: denies: rash, lesions Neurological: headache. denies: weakness, numbness, paresthesias, confusion, abnormal gait, vertigo Psychiatric: as per HPI Hematological/Lymphatic: denies: easy bleeding, easy bruising ED Past Medical Hx - Past Medical History Hx Hypertension: No Hx Diabetes: No Hx Deep Vein Thrombosis: No Hx Renal Disease: No Hx Sickle Cell Disease: No Hx Seizures: No Hx Asthma: Yes (NEVER HAD AN ATTACK) Hx HIV: No Additional medical history: Headaches - Surgical History Additional Surgical History: D&C - Social History Smoking Status: Former Smoker - Medications Home Medications: Home Medications Medication Instructions Recorded Confirmed Last Taken Type Ferrous Sulfate [Feosol 325 MG tab] 325 mg PO BID #60 tablet 08/29/19 Unknown Rx Ibuprofen [Motrin] 600 mg PO Q6H PRN #60 tablet 08/29/19 Unknown Rx Acetaminophen [Acetaminophen TAB] 1,000 mg PO Q6HR PRN #30 tablet 08/08/21 Unknown Rx Metoclopramide [Reglan] 10 mg PO Q6H PRN #30 tablet 08/08/21 Unknown Rx diphenhydrAMINE [Benadryl CAP] 25 mg PO Q6HR PRN #30 capsule 08/08/21 Unknown Rx ED Physical Exam - General Limitations: No Limitations General appearance: alert, in no apparent distress - Head Head exam: Present: normocephalic, normal inspection - Eye Eye exam: Present: normal appearance, PERRL, EOMI. Absent: conjunctival injection, nystagmus Pupils: Present: normal accommodation - ENT ENT exam: Present: normal orophraynx, mucous membranes moist, TM's normal bilaterally - Neck Neck exam: Present: normal inspection, full ROM. Absent: tenderness (Range of motion is intact unrestricted to all quadrants there is no crepitus no posterior vertebral point tenderness no ecchymosis no swelling no deformity.), meningismus, lymphadenopathy - Respiratory Respiratory exam: Present: normal lung sounds bilaterally. Absent: respiratory distress, wheezes - Cardiovascular Cardiovascular Exam: Present: regular rate, normal rhythm, normal heart sounds. Absent: systolic murmur, diastolic murmur, rubs, gallop - GI/Abdominal GI/Abdominal exam: Present: soft, normal bowel sounds. Absent: distended, tenderness - Rectal Rectal exam: Present: deferred - Extremities Exam Extremities exam: Present: normal inspection, full ROM, normal capillary refill. Absent: tenderness - Back Exam Back exam: Present: normal inspection, full ROM. Absent: vertebral tenderness - Neurological Exam Neurological exam: Present: alert, oriented X3, CN II-XII intact, normal gait, reflexes normal - Expanded Neurological Exam Expanded Patient oriented to: Present: person, place, time Speech: Present: fluid speech Cranial nerves: EOM's Intact: Normal, Gag Reflex: Normal, Tongue Deviation: Normal, Nystagmus: Normal, Facial Sensation: Normal Cerebellar function: Finger to Nose: Normal Motor strength exam: RUE: 5, LUE: 5, RLE: 5, LLE: 5 Best Eye Response (Raghu): (4) open spontaneously Best Motor Response (Raghu): (6) obeys commands Best Verbal Response (Reading): (5) oriented Reading Total: 15 - Psychiatric Psychiatric exam: Present: normal affect, normal mood - Skin Skin exam: Present: warm, dry, intact, normal color. Absent: rash ED Course Vital Signs 08/07/21 18:42 Temperature 99.5 F Pulse Rate 89 Respiratory 16 Rate Blood Pressure 171/84 [Left] O2 Sat by Pulse 98 Oximetry ED Medical Decision Making - Medical Decision Making Patient 26-year-old female with history of headaches for the past 10 years intermittently. Patient states frontal headache 5/10 radiating to left and right for the past 3 days. Patient denies photophobia however there is no decrease of vision. There is no fevers no chills no ear or throat pain. Patient remains alert oriented x3 there is no nausea or vomiting. Patient drove self to ED tonight there is been no fever or chills. Patient states symptoms are exacerbated by activity. Symptoms are relieved by rest. Patient states she is between primary care providers and does not have medications for headache. Patient is with no acute distress at this time. Patient is currently alert oriented x3 amatory with steady gait patient is with no acute distress there is no photophobia no nausea no vomiting no ear or throat pain. There are no other neurodeficits headache is in usual location and intensity and in duration. Plan DC to home with prescriptions. Follow-up with primary care doctor in 2 to 3 days return to emergency department should symptoms worsen. Critical care attestation.: If time is entered above; I have spent that time in minutes in the direct care of this critically ill patient, excluding procedure time. ED Disposition Clinical Impression: Headache Qualifiers: Headache type: cluster Headache chronicity pattern: chronic headache Intractability: not intractable Qualified Code(s): G44.029 - Chronic cluster headache, not intractable Disposition: 01 HOME / SELF CARE / HOMELESS Is pt being admited?: No Does the pt Need Aspirin: No Condition: Stable Instructions: Cluster Headache, [id number] Additional Instructions: Take medications as prescribed, follow-up with your doctor in 2 to 3 days. Return to emergency department should symptoms worsen Prescriptions: Acetaminophen [Acetaminophen TAB] 1,000 mg PO Q6HR PRN #30 tablet PRN Reason: Headache diphenhydrAMINE [Benadryl CAP] 25 mg PO Q6HR PRN #30 capsule PRN Reason: Headache Metoclopramide [Reglan] 10 mg PO Q6H PRN #30 tablet PRN Reason: Headache Referrals: NADJA CUEVAS MD [Staff Physician] - 3-5 Days Forms: Work/School Release Form(ED) Time of Disposition: 04:33
== END 2021-08-08 04:43 | disposition home or self-care (01) ==
LOC: ED 15:52
DX: R51.9 Headache, unspecified (principal); J45.909 Unspecified asthma, uncomplicated; Z87.891 Personal history of nicotine dependence
CPT/HCPCS: 99281